=== PATIENT | female | born 1930 | race Caucasian/White ===

== ENCOUNTER 2017-06-24 21:22 | Inpatient (IN) ==
[2017-06-24] MEDS ORDERED: KETOROLAC 30 MG/ML INJECTION IVP ONE (21:46)
[2017-06-24] MEDS ORDERED: ALBUTEROL 2.5mg/3ml (0.083%) NEB AEROSOL ONE (21:46)
--- NOTE | 2017-06-24 21:50 | Emergency Department Report ---
General Adult HPI - General Stated complaint: fall,fever,weakness Time Seen by Provider: 06/24/17 21:24 Source: patient, family Mode of arrival: ambulatory Limitations: no limitations - History of Present Illness HPI narrative: Patient has had 2-3 days of fevers, mild cough, generalized achiness and fatigue. Patient is so she had the flu, and as she is "a telephone Cecy" she did not want to come to the hospital until today when she became so weak that her knees buckled and she fell. Patient has a mild abrasion to the right posterior scapula, but complains of mild left rib pain. Patient's primary complaint at this time is general weakness. - Related Data Home Medications Medication Instructions Recorded Confirmed Aspirin [Aspir 81] 81 mg PO DAILY #0 02/24/11 06/24/17 Triamterene/Hydrochlorothiazid 1 tab PO DAILY #0 02/24/11 06/24/17 [Maxzide 75 mg-50 mg Tablet] Acetaminophen 325 mg PO Q4H PRN 02/13/17 06/24/17 Lovastatin [Mevacor] 20 mg PO DAILY 02/13/17 06/24/17 Metoprolol Succinate 50 mg PO BID 02/13/17 06/24/17 Multivitamin [Multivitamins] 1 cap PO DAILY 02/13/17 06/24/17 Allergies Allergy/AdvReac Type Severity Reaction Status Date / Time No Known Allergies Allergy Verified 06/24/17 22:36 Review of Systems All systems: reviewed and negative except as stated PFSH Patient Stated Medical History Migraine Yes: hx Cataracts Yes Other HEENT Yes: Wears glasses, L eye hemorrhage Hypertension Yes Hiatal Hernia Yes Osteoarthritis Yes Surgical History: Hysterectomy - Social History Smoking status: Never smoker Physical Exam - Limitations Limitations: no limitations - General General appearance: alert - Normal Exams: Head:: Normocephalic without trauma Eyes:: Pupils are PERRLA w/ EOMI, No scleral icterus, irritation, or foreign bodies noted ENMT:: No facial trauma, nasal exudates, pharyngeal erythema, or exudates are noted Neck:: Full range of motion, without adenopathy, JVD, bruits or thyromegaly Cardiovascular:: Regular rate and rhythm, without murmur or gallop, Pulses 2+ all extremities, capillary refill, <2 seconds all extremities Abdomen:: Bowel sounds positive, soft, non-tender, non-distended, no hepatosplenomegaly, masses or bruits noted Lymphatic:: No lymphadenopathy, or lymphedema noted Musculoskeletal:: No tenderness, or deformity noted, good range of motion, all extremities Neurological:: Patient is alert, and oriented, cranial nerves, motor/sensory/ cerebellar, exams w/o gross deficits, to observation Psychiatric:: Patient exhibits, appropriate attention, emotion and affect - Chest Chest inspection: Present: normal inspection, symmetric chest wall rise. Absent : tenderness - Respiratory Respiratory exam: Present: wheezes. Absent: normal lung sounds bilaterally ( course breath sounds bilaterally with mild wheezes on the left and rhonchi greatest on the right), respiratory distress, accessory muscle use, prolonged expiratory phase - Back Exam Back exam: Present: other (patient has no significant tenderness, deformity, or contusions on the left or right side after the fall.) - Skin Skin exam: Present: other (patient has an oblique linear abrasion to the right scapula without tenderness or deformity.) Course Vital Signs Temperature 100 F 06/24/17 21:24 Pulse Rate 84 06/24/17 21:24 Respiratory Rate 16 06/24/17 21:24 Blood Pressure 172/79 H 06/24/17 21:24 Pulse Oximetry 89 L 06/24/17 21:24 Temperature 100 F 06/24/17 21:24 Pulse Rate 103 H 06/24/17 23:10 Respiratory Rate 23 06/24/17 23:10 Blood Pressure 151/72 H 06/24/17 22:07 Pulse Oximetry 93 06/24/17 23:12 Medical Decision Making - [facility] Narrative Medical decision making narrative: Initial O2 saturations were mildly low at 88% on room air, patient was placed on 2 L supplemental O2 Patient given 1 L normal saline IV fluid bolus, Toradol 20 mg IV, and one nebulized albuterol treatment CBC - N CMP - N respiratory panel - positive for influenza A CXR - COPD/chronic lung disease changes with persistent right perihilar thickening. No focal consolidations are seen She feeling much better after IV fluids and albuterol. O2 saturations remain somewhat borderline at 89-91% while resting supine. Patient is still feeling rather unsteady on her feet, does not feel that she would be able to maintain her ADLs at home. Patient is discussed with Dr. Duggan, we will admit for hypoxemia, weakness associated with influenza A - Lab Data Result diagrams: 06/24/17 22:20 06/24/17 22:20 Lab Results 06/24/17 06/24/17 06/24/17 Range/Units 22:20 22:20 22:20 WBC 5.3 (4.5-11.0) T/MM3 RBC 3.90 L (4.00-5.20) M/MM3 Hgb 13.2 (12-16) GM/DL Hct 39.0 (36-46) % MCV 100.0 (80-100) UM3 MCH 33.8 (26-34) UUG MCHC 33.8 (31-37) GM/DL RDW Std Deviation 47.5 (36.9-50.2) FL Plt Count 109 L (130-400) T/MM3 MPV 11.0 (9.4-12.4) UM3 Immature Gran % (Auto) 0.2 (0.0-0.5) % Neut % (Auto) 82.5 H (33-66) % Lymph % (Auto) 8.0 L (23-45) % [place] % (Auto) 9.1 H (0-9.0) % Eos % (Auto) 0.0 (0-4) % Baso % (Auto) 0.2 (0-2) % Neut # (Auto) 4.4 (1.8-7.7) T/MM3 Lymph # (Auto) 0.4 L (1-4.8) T/MM3 [place] # (Auto) 0.5 (0-0.8) T/MM3 Eos # (Auto) 0.0 (0-0.5) T/MM3 Baso # (Auto) 0.0 (0-0.2) T/MM3 Abs Immat Gran (auto) 0.01 (0.00-0.03) T/MM3 Turbidity < 20 (0-20) Sodium 133 L (134-144) MEQ/L Potassium 4.1 (3.6-5) MEQ/L Chloride 94 L (98-107) MEQ/L Carbon Dioxide 31 H (22-30) MEQ/L Anion Gap 8 (5-15) MEQ/L BUN 36.0 H (7-17) MG/DL Creatinine 1.0 (0.7-1.2) MG/DL GFR Calculation 52 BUN/Creatinine Ratio 36 H (6-26) RATIO Glucose 118 H (65-110) MG/DL Calculated Osmolality 265 (261-280) MOSM/KG Calcium 8.7 (8.4-10.2) MG/DL Total Bilirubin 0.40 (0.20-1.30) MG/DL Conjugated Bilirubin 0.00 (0.00-0.30) MG/DL Unconjugated Bilirubin 0.20 (0.00-1.1) MG/DL Icterus Index < 2 (0-7) AST 66 H (14-36) U/L ALT 35 (9-52) U/L Alkaline Phosphatase 58 (38-126) U/L Total Protein 6.9 (6.3-8.2) G/DL Albumin 3.9 (3.5-5.0) G/DL Globulin 3.0 (2.4-3.6) G/DL Albumin/Globulin Ratio 1.3 (1.1-2.2) RATIO Plasma Lactate 1.3 (0.6-2.2) MMOL/L Specimen Hemolysis < 15 (0-25) Adenovirus (PCR) Negative (Negative) B.parapertussis DNA PCR Negative (Negative) C. pneumoniae DNA (PCR) Negative (Negative) Coronavirus OC43 (PCR) Negative (Negative) Coronavirus HKU1 (PCR) Negative (Negative) Coronavirus 229E (PCR) Negative (Negative) Coronavirus NL63 (PCR) Negative (Negative) Human Metapneumovir PCR Negative (Negative) Influenza A (H3) PCR Detected A* (Negative) Influenza Type B (PCR) Negative (Negative) M. pneumoniae (PCR) Negative (Negative) Parainfluenza 1 (PCR) Negative (Negative) Parainfluenza 2 (PCR) Negative (Negative) Parainfluenza 3 (PCR) Negative (Negative) Parainfluenza 4 (PCR) Negative (Negative) RSV (PCR) Negative (Negative) Entero/Rhino (PCR) Negative (Negative) Disposition Clinical Impression: Influenza A COPD (chronic obstructive pulmonary disease) Qualifiers: COPD type: unspecified COPD Qualified Code(s): J44.9 - Chronic obstructive pulmonary disease, unspecified Disposition: 02 To [facility] [place] Condition: Improved Instructions: Influenza (ED), COPD (Chronic Obstructive Pulmonary Disease) (ED) Prescriptions: Continue Lovastatin [Mevacor] 20 mg PO DAILY Acetaminophen 325 mg PO Q4H PRN PRN Reason: Pain Triamterene/Hydrochlorothiazid [Maxzide 75 mg-50 mg Tablet] 1 tab PO DAILY #0 Aspirin [Aspir 81] 81 mg PO DAILY #0 Multivitamin [Multivitamins] 1 cap PO DAILY Metoprolol Succinate 50 mg PO BID Referrals: Riccardo Bethea MD [Family Provider] - - Seen By: physician
[2017-06-24] MEDS: SALINE FLUSH 10ml SYRINGE IVF PRN (22:27)
[2017-06-24] MEDS ORDERED: INHALER ASSIST DEVICE (Optichamber) MC ONE (23:46)
[2017-06-25] MEDS ORDERED: IBUPROFEN 600 MG TABLET PO PRN (00:43)
[2017-06-25] MEDS ORDERED: ACETAMINOPHEN 650 MG SUPPOSITORY PR PRN (00:43)
[2017-06-25] MEDS ORDERED: ONDANSETRON 4 MG/2 ML INJECTION IVP PRN (00:43)
[2017-06-25] MEDS ORDERED: OSELTAMIVIR 30mg/5ml ORAL LIQUID PO ONE (00:43)
[2017-06-25] MEDS ORDERED: ALBUTEROL 2.5mg/3ml (0.083%) NEB AEROSOL PRN (01:02)
--- NOTE | 2017-06-25 01:08 | History & Physical Report ---
History of Present Illness Date: 06/25/17 Chief complaint: weakness and cough HPI: Patient seen with nursing assistance via telemedicine on 06/25/2017 Ms. Collins is a pleasant 87yo woman with h/o HTN, dyslipidemia, cataracts, and hard of hearing with now 2-3 days of dry cough and weakness. In the last day short of breath with nebs helping. Aches but no real pain or nausea. ?sick contacts. ABRAHAM noted with no h/o tobacco abuse. No recent medication changes. No syncope with fall. Past Medical History Patient Stated Medical History Migraine Yes: hx Cataracts Yes Other HEENT Yes: Wears glasses, L eye hemorrhage Hypertension Yes Hiatal Hernia Yes Osteoarthritis Yes Surgical History: Hysterectomy Family History Updates: mother of CVA at 85, father of CAD at 66 - Social History Smoking status: Never smoker Substance use type: does not use Alcohol intake frequency: does not drink Housing: house Household members: none Medications Home Medications Medication Instructions Recorded Confirmed Type RX: Aspirin [Aspir 81] 81 mg PO DAILY #0 02/24/11 06/24/17 History RX: Triamterene/Hydrochlorothiazid 1 tab PO DAILY #0 02/24/11 06/24/17 History [Maxzide 75 mg-50 mg Tablet] RX: Acetaminophen 325 mg PO Q4H PRN 02/13/17 06/24/17 History RX: Lovastatin [Mevacor] 20 mg PO DAILY 02/13/17 06/24/17 History RX: Metoprolol Succinate 50 mg PO BID 02/13/17 06/24/17 History RX: Multivitamin [Multivitamins] 1 cap PO DAILY 02/13/17 06/24/17 History Allergies Allergy/AdvReac Type Severity Reaction Status Date / Time No Known Allergies Allergy Verified 06/24/17 22:36 Exam Vital Signs: Temperature 98.2 F 06/25/17 00:54 Pulse Rate 140 H 06/25/17 00:54 Respiratory Rate 16 06/25/17 00:54 Blood Pressure 114/82 06/25/17 00:54 Pulse Oximetry 92 06/25/17 00:54 Telemetry Rhythm: Sinus Tachycardia Height/Weight/BMI: Height 1.63 m Weight 48 kg Body Mass Index 18.1 - Constitutional Present: no acute distress, thin - Routine HEENT Exam Head: Present: normocephalic, atraumatic Eye: Present: EOMI - Routine Neck Exam Present: full ROM - Routine Respiratory Exam Absent: accessory muscle use Comments: slight wheezing and prolonged expiration. no rales. effort symmetric - Routine Cardiovascular Exam Present: RRR, S1, S2, no murmur Comments: mild tachycardic with afib briefly on monitor - Routine Abdominal Exam Present: soft, normoactive bowel sounds, non distended - Routine Extremities Exam Absent: cyanosis, clubbing, edema - Routine Skin Exam Present: intact - Routine Neurological Exam Present: alert, oriented X3, CN II-XII intact - Routine Psychiatric Exam Present: normal affect Results - Labs CBC & Chem 7: 06/24/17 22:20 06/24/17 22:20 Assessment and Plan (1) Influenza A Current visit: Yes Status: Acute (2) Hypoxia Current visit: Yes Status: Acute (3) HTN (hypertension) Current visit: Yes Status: Acute (4) Dyslipidemia Current visit: Yes Status: Acute (5) Atrial fibrillation Current visit: Yes Status: Acute Assessment and Plan: 1. Influenza A leading to hypoxia--full admit, tamiflu, nebs scheduled and prn , O2 2. Paroxysmal afib--albuterol certainly will contribute. LMWH once and continue home metoprolol 3. Essential HTN--hold diuretic, continue other. 4. Dyslipidemia on statin. 5. Stress hyperglycemia DVT Prophylaxis: SCD's Resuscitation Status: Do Not Resuscitate - Physician Narrative Physician: Rhoda Cortez MD Narrative: Date: 06/25/17 Time: 1300 Dr. Gunn's note reviewed. Mrs. Collins interviewed and examined. CC: Cough and weakness with fall HPI: Mrs. Collins is an 87-year-old female who presented to the emergency room after falling at home. She is not aware of any injuries and reports that she simply felt weak and couldn't keep her balance. She adamantly denies syncope and is not aware of any injuries. This occurred late yesterday after she had a cough for 2 or 3 days associated with poor oral intake. Cough has been nonproductive and she denies wheezing or pleuritic pain. Patient reports some dyspnea and exertional dyspnea. She has felt feverish but denied rigors or chills. She reports her thermometer doesn't work at home so she is unsure how high her temperature is been. She's had no swelling in her legs and no chest pain. Initial temperature in the emergency room was 100 and she has had mild tachypnea with some tachycardia since admission. Oxygen saturation on arrival was 89% on room air and later repeated at 87%. Respiratory viral panel was positive for influenza A and she was hospitalized for management of hypoxia and weakness in the setting of a fall. PH/SH/FH: agree with that recorded above as recorded by Dr. 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 She denies history of hysterectomy but did have several breast biopsies for benign disease in the past and has had bilateral cataract extractions. The patient lives independently, reports that her alternate decision-maker is her daughter Irasema Sheikh, and that she has a DO NOT RESUSCITATE order. ROS: 10 point review positive only for occasional nosebleeds, chronic constipation, and arthritic pain involving her hands, wrists, and knees. Remainder of ROS negative or as per history of present illness. EXAM: General-NAD, alert, fluent speech; 98.2, 91, 94% on 1 L supplemental oxygen HEENT-PERRL, EOMI without nystagmus, R-conjunctiva clear, L-medial subconjunctival hemorrhage, sclera anicteric, conjugate gaze, facial structures symmetric, oropharynx clear, neck supple and without adenopathy Lungs-respirations nonlabored, good airflow, breath sounds clear Cardiac-irregular cardiac rhythm with low-grade tachycardia, S1 and S2 Abd-soft, nontender, bowel sounds present although somewhat diminished Ext-without edema Skin-without wounds/rash Neuro-cranial nerves 1-12 intact, motor tone/power grossly intact, no tremor, sensation intact to light touch/cold 4 extremities Psych-alert, cooperative, calm DATA: White count 5.3, hemoglobin 13.2, platelet count 109,000 (not present previously per review of outpatient records); sodium 133, BUN 36, creatinine 1.0 , AST 66 with remainder of liver enzymes normal. Lactic acid 1.3-1.3 Respiratory viral panel positive for influenza A Chest x-ray by my review with flattened diaphragms and hyperexpanded lung cunningham , bilateral interstitial markings are increased, cardiomegaly-new since 2011 per radiology report. Telemetry reviewed-atrial fibrillation with variable rates A/P: Influenza A with hypoxia Weakness with fall Atrial fibrillation, variable rate Thrombocytopenia, borderline Hypertension Dyslipidemia Tamiflu was initiated overnight for treatment of influenza A. Patient's diuretic remains on hold; metoprolol was resumed to assist with rate control. We 'll clarify duration of atrial fibrillation with the patient with additional history. Continue telemetry. EKG to be obtained. Patient does not describe history of arrhythmias or other cardiac disease earlier severe arrhythmia may be new with stress of acute illness. Anticipate echocardiogram. Continue IV fluids, check orthostatics, and obtain PT/OT consults due to weakness and fall that preceded hospitalization. Follow platelet count and sodium, both borderline on admission. Hospital Course Summary Disclaimer: The visit summary below is not to be considered part of the above Progress Note.
[2017-06-25] MEDS: SALINE FLUSH 10ml SYRINGE IVF PRN (01:09)
[2017-06-25] MEDS: NS 1,000 ML IV SCH ×3 (01:10→21:32)
[2017-06-25] MEDS: ENOXAPARIN 40 MG/0.4 ML INJECTION SQ SCH ×2 (01:55→08:59)
--- NOTE | 2017-06-25 07:37 | XRay Report ---
Indication: cough, fever, hypoxemia XR chest 2V: Comparison: 05/29/2012 Technique: PA and lateral chest Findings: Patient shows slight increase in the heart size since the 2012 study. Increased interstitial markings have increased just slightly and may be more reflective of increasing interstitial lung disease some. Patient showed quite a bit of chronic change on the old exam. No pleural effusions or significant central vascular congestion identified. Impression: Significant chronic interstitial lung disease with a slight increase in the heart size without pleural effusions or significant central vascular congestion. .
[2017-06-25] MEDS: ALBUTEROL/IPRATROPIUM 2.5mg-0.5mg/3ml NEB AEROSOL SCH ×4 (07:50→20:37)
[2017-06-25] MEDS: ASPIRIN *EC* 81 MG TABLET PO SCH (08:59)
[2017-06-25 09:31] VITALS: BMI 18.0
[2017-06-25] MEDS: LOVASTATIN 20 MG TABLET PO SCH (21:20)
[2017-06-25] MEDS: SENNA + DOCUSATE TABLET PO SCH (21:20)
[2017-06-26] MEDS ORDERED: MENTHOL COUGH DROPS (RICOLA) MM PRN (01:49)
[2017-06-26] MEDS: ALBUTEROL/IPRATROPIUM 2.5mg-0.5mg/3ml NEB AEROSOL SCH ×4 (08:20→19:29)
[2017-06-26] MEDS: NS 1,000 ML IV SCH (08:21)
[2017-06-26] MEDS ORDERED: ALBUTEROL/IPRATROPIUM 2.5mg-0.5mg/3ml NEB AEROSOL PRN (08:24)
[2017-06-26] MEDS: ASPIRIN *EC* 81 MG TABLET PO SCH (09:49)
[2017-06-26] MEDS: ENOXAPARIN 40 MG/0.4 ML INJECTION SQ SCH (09:49)
[2017-06-26] MEDS: MENTHOL COUGH DROPS (RICOLA) MM PRN (09:49)
[2017-06-26] MEDS: NS with KCL 20 mEq 1,000 ML IV SCH ×2 (09:51→21:01)
[2017-06-26] MEDS: GUAIFENESIN LA 600 MG TABLET PO SCH ×2 (10:01→21:02)
--- NOTE | 2017-06-26 19:55 | Progress Note ---
- Date 06/26/17 Subjective: Mrs. Collins was resting comfortably when seen. She was not on oxygen and denied dyspnea but reported she continues to cough without sputum production. She denied chest pain but indicated she occasionally has palpitations. She's had no lightheadedness today and denied nausea or vomiting. She again confirmed that she's had an irregular heart rhythm for as long as she can remember but does not recall anticoagulation ever being discussed with her. She is unsure when she lost had an echocardiogram. She is familiar with warfarin because her took it. Objective Vital signs: Temperature 97.6 F 06/26/17 15:00 Pulse Rate 117 H 06/26/17 16:00 Respiratory Rate 18 06/26/17 19:29 Blood Pressure 114/71 06/26/17 15:00 Pulse Oximetry 95 RA 06/26/17 15:40 NAD, alert Conjunctiva clear, oropharynx clear Respirations nonlabored, good airflow, breath sounds clear, no cough induced by inspiration Irregular cardiac rhythm, S1-S2, low-grade tachycardia Abdomen soft, nontender, all sounds present although diminished Extremities without edema Skin without rash/wounds MAEW Calm, cooperative Rhythm: Atrial Fibrillation with Normal Ventricular Rate, Atrial Fibrillation with RVR Height/Weight/BMI: Height 1.63 m Weight 50.7 kg Body Mass Index 18.0 Results - Labs CBC & Chem 7: 06/26/17 04:21 06/26/17 04:21 Labs: Magnesium 1.6, phosphorus 2.8 Lactic acid 2.2 this morning-2.5 early afternoon-3.5 late this afternoon Microbiology Results: Microbiology 06/26/17 08:33 Peripheral/Iv Start Blood Culture - Preliminary Culture Initiated - Results Pending 06/26/17 08:37 Peripheral/Iv Start Blood Culture - Preliminary Culture Initiated - Results Pending Assessment and Plan (1) Influenza A Current visit: Yes Status: Acute (2) Hypoxia Current visit: Yes Status: Acute (3) Atrial fibrillation Current visit: Yes Status: Acute Assessment and Plan: Impression: Influenza A with hypoxia Weakness with fall Atrial fibrillation, variable rate Thrombocytopenia, borderline Hypertension Dyslipidemia Hypokalemia-06/26/17 Lactic acidosis Plan: Hypoxia improved, day 2 Tamiflu. Patient hoping to discharge to nursing home for strengthening. Atrial fibrillation discussed with the patient-she is interested in anticoagulation and does not describe any contraindication to doing so, Echocardiogram to be obtained to exclude valvular heart disease. Options reviewed with the patient in addition to bleeding risk. Will clarify cost of and NOACs prior to final decision. Continue low-dose Lovenox at present. Metoprolol increased to 150 mg daily for improved rate control although anticipate improved rate control with decreased beta agonist use. Review of past records indicates patient was in atrial fibrillation when hospitalized for surgery in 2014. Platelet count 99K, continue to monitor-likely viral manifestation that may preclude anticoagulation. Potassium supplemented IV/by mouth earlier today. Lactic acidosis new today, clearly has viral syndrome. Continue fluids. Blood pressure stable. Blood cultures drawn. - Physician Narrative Narrative: Date: 06/26/17 Time: 1950 Sepsis Assessment - Evaluation SIRS Criteria: pulse > 90 beats/minute (atrial fibrillation), RR > 20 (influenza ) Severe Sepsis: lactate > 2.0 mg/dL, platelet count < 100,000 Hospital Course Summary Disclaimer: The visit summary below is not to be considered part of the above Progress Note. Hospital Course: 06/25/17 Admitted with weakness and a fall; diagnosed with influenza A during assessment in the emergency room. Incidentally noted to be in atrial fibrillation-duration unknown. Tamiflu was initiated overnight for treatment of influenza A. Patient' s diuretic remains on hold; metoprolol was resumed to assist with rate control. Continue telemetry. EKG to be obtained. Patient did not describe history of arrhythmias or other cardiac disease when past medical history obtained; may be result of acute illness. Continue IV fluids, check orthostatics, and obtain PT/ OT consults due to weakness and fall that preceded hospitalization. Follow platelet count and sodium, both borderline on admission. 06/26/17 Hypoxia improved, day 2 Tamiflu. Patient hoping to discharge to nursing home for strengthening. Atrial fibrillation discussed with the patient-she is interested in anticoagulation and does not describe any contraindication to doing so, Echocardiogram to be obtained to exclude valvular heart disease. Options reviewed with the patient in addition to bleeding risk. Will clarify cost of and NOACs prior to final decision. Continue low-dose Lovenox at present. Metoprolol increased to 150 mg daily for improved rate control although anticipate improved rate control with decreased beta agonist use. Review of past records indicates patient was in atrial fibrillation when hospitalized for surgery in 2014. Lactic acidosis new today, clearly has viral syndrome. Continue fluids. Blood pressure stable. Blood cultures drawn.
[2017-06-26] MEDS: LOVASTATIN 20 MG TABLET PO SCH (21:02)
[2017-06-26] MEDS: SENNA + DOCUSATE TABLET PO SCH (21:03)
[2017-06-27] MEDS: Oxycodone/Acetaminophen 5/325 1 TAB PO PRN ×2 (03:58→21:39)
[2017-06-27] MEDS: NS with KCL 20 mEq 1,000 ML IV SCH (07:22)
[2017-06-27] MEDS: ALBUTEROL/IPRATROPIUM 2.5mg-0.5mg/3ml NEB AEROSOL SCH ×4 (07:45→20:37)
[2017-06-27] MEDS: GUAIFENESIN LA 600 MG TABLET PO SCH ×2 (08:53→21:40)
[2017-06-27] MEDS: ASPIRIN *EC* 81 MG TABLET PO SCH (08:54)
[2017-06-27] MEDS: ENOXAPARIN 40 MG/0.4 ML INJECTION SQ SCH (08:55)
[2017-06-27] MEDS: MENTHOL COUGH DROPS (RICOLA) MM PRN ×2 (11:42→15:18)
[2017-06-27] MEDS ORDERED: INFLUENZA VAC High Dose 2017-18 (Fluzone HD*) (>=65yo) 0.5ml IM ONE (12:20)
--- NOTE | 2017-06-27 13:53 | Progress Note ---
- Date 06/27/17 Subjective: Patient seen this morning lying in bed. She reports she is feeling better. She continues to feel weak. Feels her breathing is better but is still coughing quite a bit. Doesn't have much of an appetite. Complains of no pain. She states that [facility] to get [facility] before she goes back to her home. Objective Vital signs: Temperature 97.4 F 06/27/17 07:26 Pulse Rate 108 H 06/27/17 08:00 Respiratory Rate 20 06/27/17 11:40 Blood Pressure 112/66 06/27/17 07:26 Pulse Oximetry 94 06/27/17 11:40 Rhythm: Atrial Fibrillation with Normal Ventricular Rate, Atrial Fibrillation with RVR Height/Weight/BMI: Height 1.63 m Weight 52.5 kg Body Mass Index 18.0 - Constitutional Present: no acute distress, well developed, thin - Routine HEENT Exam Head: Present: normocephalic, atraumatic - Routine Respiratory Exam Present: crackles. Absent: wheezes - Routine Cardiovascular Exam Present: no murmur, irregular rhythm - Routine Abdominal Exam Present: soft, non distended, non tender - Routine Extremities Exam Present: no edema, normal capillary refill - Routine Skin Exam Present: dry, warm - Routine Neurological Exam Present: alert, oriented X3 - Routine Lymphatic Exam Lymphatic: Absent: adenopathy - Routine Psychiatric Exam Present: normal affect, cooperative Results - Labs CBC & Chem 7: 06/27/17 05:11 06/27/17 05:11 Microbiology Results: Microbiology 06/26/17 08:33 Peripheral/Iv Start Blood Culture - Preliminary No Growth After 1 Day 06/26/17 08:37 Peripheral/Iv Start Blood Culture - Preliminary No Growth After 1 Day Assessment and Plan (1) Influenza A Current visit: Yes Status: Acute (2) Hypoxia Current visit: Yes Status: Acute (3) Atrial fibrillation Current visit: Yes Status: Acute Assessment and Plan: Impression: Influenza A with hypoxia Weakness with fall Atrial fibrillation, variable rate Thrombocytopenia, borderline Hypertension Dyslipidemia Hypokalemia-06/26/17 Lactic acidosis Plan: On 2 L O2. Day #3 Tamiflu. Patient improving. Echocardiogram results are pending. Patient willing to start chronic anticoagulation for A. fib. Currently on low-dose Lovenox. Platelet count 101K, continue to monitor-likely viral manifestation that may preclude anticoagulation. Metoprolol increased to 150 mg daily for improved rate control. Rates 100-123 over the past 24 hours. Patient hoping to discharge to correction at [facility] for strengthening. DVT Prophylaxis: Xarelto Resuscitation Status: Do Not Resuscitate - Physician Narrative Physician: Josselin Glover MD Narrative: Date: 06/27/17 Time: 1900 Mrs. Collins reports that she's been wearing oxygen off and on but probably doesn' t need it. She denies dyspnea and cough is "looser". She denies pain or palpitations. Respirations are nonlabored and breath sounds are clear, no wheezing present Irregular cardiac rhythm, low-grade tachycardia Preliminary echocardiogram report with normal ejection fraction, minor MR/TR. Aortic valve was not seen but Doppler does not suggest significant aortic stenosis. Initiate Xarelto for stroke prophylaxis Blood pressure stable on 150 mg metoprolol daily. Hospital Course Summary Disclaimer: The visit summary below is not to be considered part of the above Progress Note. Hospital Course: 06/25/17 Admitted with weakness and a fall; diagnosed with influenza A during assessment in the emergency room. Incidentally noted to be in atrial fibrillation-duration unknown. Tamiflu was initiated overnight for treatment of influenza A. Patient' s diuretic remains on hold; metoprolol was resumed to assist with rate control. Continue telemetry. EKG to be obtained. Patient did not describe history of arrhythmias or other cardiac disease when past medical history obtained; may be result of acute illness. Continue IV fluids, check orthostatics, and obtain PT/ OT consults due to weakness and fall that preceded hospitalization. Follow platelet count and sodium, both borderline on admission. 06/26/17 Hypoxia improved, day 2 Tamiflu. Patient hoping to discharge to correction for strengthening. Atrial fibrillation discussed with the patient-she is interested in anticoagulation and does not describe any contraindication to doing so, Echocardiogram to be obtained to exclude valvular heart disease. Options reviewed with the patient in addition to bleeding risk. Will clarify cost of and NOACs prior to final decision. Continue low-dose Lovenox at present. Metoprolol increased to 150 mg daily for improved rate control although anticipate improved rate control with decreased beta agonist use. Review of past records indicates patient was in atrial fibrillation when hospitalized for surgery in 2014. Lactic acidosis new today, clearly has viral syndrome. Continue fluids. Blood pressure stable. Blood cultures drawn. 06/27/17 On 2 L O2. Day #3 Tamiflu. Patient improving. Echocardiogram results are pending. Patient willing to start chronic anticoagulation for A. fib. Currently on low-dose Lovenox. Platelet count 101K, continue to monitor-likely viral manifestation that may preclude anticoagulation. Metoprolol increased to 150 mg daily for improved rate control. Rates 100-123 over the past 24 hours. Patient hoping to discharge to correction at [facility] for strengthening.
[2017-06-27] MEDS ORDERED: RIVAROXABAN 20 MG TABLET PO SCH (17:30)
[2017-06-27] MEDS: LOVASTATIN 20 MG TABLET PO SCH (21:40)
[2017-06-27] MEDS: SENNA + DOCUSATE TABLET PO SCH (21:44)
[2017-06-28] MEDS: ALBUTEROL/IPRATROPIUM 2.5mg-0.5mg/3ml NEB AEROSOL SCH ×4 (07:06→19:33)
--- NOTE | 2017-06-28 07:47 | Echocardiogram ---
DATE OF PROCEDURE June 26, [address] Rhoda Cortez This is a two-dimensional echo with spectral Doppler, color-flow and M-mode. It was obtained in a patient with atrial fibrillation. This is a technically very difficult study. Left atrial dimension is normal. Left ventricular end-diastolic dimension is normal. Left ventricular wall thickness is normal. LV systolic function is normal with ejection fraction of 60%. Right atrium is normal. Right ventricle is normal. Aortic root dimension is normal. Mitral valve appears to be normal with trace of mitral regurgitation. Aortic valve was not visualized well. However, Doppler studies indicate no stenosis or insufficiency. Tricuspid valve shows mild tricuspid regurgitation with mild pulmonary hypertension with estimated pulmonary artery systolic pressure of 34. Pulmonary valve was not visualized. There is no pericardial effusion. IMPRESSION 1. Technically very difficult study. 2. Grossly normal LV systolic function with ejection fraction of about 60%. However, all daly were not visualized. 3. Trace of mitral regurgitation. 4. Mild tricuspid regurgitation with mild pulmonary hypertension with estimated pulmonary artery systolic pressure of 34. MTDD
[2017-06-28] MEDS: ASPIRIN *EC* 81 MG TABLET PO SCH (08:45)
[2017-06-28] MEDS: MENTHOL COUGH DROPS (RICOLA) MM PRN (08:45)
[2017-06-28] MEDS: GUAIFENESIN LA 600 MG TABLET PO SCH ×2 (08:45→21:14)
--- NOTE | 2017-06-28 10:41 | Progress Note ---
- Date 06/28/17 Subjective: Garima was seen after breakfast - she was dozing off in her chair but woke up easily. She denied any c/o except for feeling a little bloated. She denies feeling SOA or having chest pain or palpitations. She coughs occasionally but its nonproductive. Her nurse checks on her when HR >130 and she is consistently asymptomatic. She denies nausea/vomiting. She notes a little leg swelling. I asked her if she sees a leather coverer for her a-fib and she told me she didn't know she had a-fib. Objective Vital signs: Temperature 98.5 F 06/28/17 08:00 Pulse Rate 122 H 06/28/17 08:00 Respiratory Rate 18 06/28/17 10:10 Blood Pressure 176/114 H 06/28/17 08:00 Pulse Oximetry 96 06/28/17 10:10 Rhythm: Atrial Fibrillation with RVR Height/Weight/BMI: Height 1.63 m Weight 52.5 kg Body Mass Index 18.0 - Constitutional Present: no acute distress, well nourished, well developed, thin - Routine HEENT Exam Eye: Present: PERRL. Absent: conjunctival icterus, scleral injection ENT: Present: mucous membranes moist - Routine Respiratory Exam Present: decreased breath sounds, crackles - Routine Cardiovascular Exam Present: irregularly irregular - Routine Abdominal Exam Present: normoactive bowel sounds, non tender, distended - Routine Extremities Exam Present: edema (trace BLE) - Routine Musculoskeletal Exam Musculoskeletal: Present: no joint swelling - Routine Skin Exam Present: intact, dry, warm - Routine Neurological Exam Present: alert, moving all extremities, normal speech - Routine Psychiatric Exam Present: normal affect, cooperative Results - Labs CBC & Chem 7: 06/28/17 04:15 06/27/17 05:11 Microbiology Results: Microbiology 06/26/17 08:33 Peripheral/Iv Start Blood Culture - Preliminary No Growth After 2 Days 06/26/17 08:37 Peripheral/Iv Start Blood Culture - Preliminary No Growth After 2 Days Assessment and Plan (1) Influenza A Current visit: Yes Status: Acute (2) Hypoxia Current visit: Yes Status: Acute (3) Atrial fibrillation Current visit: Yes Status: Acute Assessment and Plan: Impression: Influenza A with hypoxia Weakness with fall Atrial fibrillation, variable rate Thrombocytopenia Hypertension Dyslipidemia Hypokalemia-06/26/17 Lactic acidosis Plan: Sats dropped to 85% on room air and she was placed back on O2. Cont Tamiflu day #4. Echo read by Dr. Coello - EF 60%; mild TR, mild PH. HR still >130 at times; pt asymptomatic and BP tends to be on high side. D/W Dr. Abad - will start diltiazem 180 mg daily. Cont higher dose of metoprolol. Consider cardiology consultation. Platelet count is rebounding and up to 108 today. Mg borderline low - start MagOx 400 mg daily. [facility] Outpatient Xarelto cost about 400 dollars a month - will change to Coumadin. Pharm consult initiated. DVT Prophylaxis: Xarelto Resuscitation Status: Do Not Resuscitate - Time spent with patient Time with patient PN: 35 minutes Coordination of Care: >50% of visit spent providing counseling/coordination of care - Physician Narrative Physician: Ajith Abad MD Narrative: Date: 06/28/17 Time: 1710 Have independently interviewed and examined pt. Chart reviewed. Case discussed with CM and my P[employer] ROUGHER. Care plan developed with my supervision; agree with above. Doing okay. Notes problems sleeping-will get SOA and anxious. Does tend to have difficulty sleeping at home-if insomnia occurs will do Facebook, get a snack, or walk around--not able to do any of that here. Eating well. No chest pain/ palpitations. Had questions about afib and skilled care-discussed with her. Lungs: decreased bilaterally, no distress on RA. CV: irregularly irregular. AB : soft nt/nd MSE: awake alert appropriate Plan: Add diltiazem 180mg daily to help HR. Check on cost of Xarelto for patient -about $400 a month; will change to Coumadin. Could try lorazepam 0.5mg to help anxiey/airhunger and sleep. Discussed afib treatments with patient. Discussed about medications to help control heart rate and also medications to decrease risk for clot formation/stroke. Also discussed about Skilled care post discharge. Questions answered. Time spent with patient 35 minutes, with greater than 50% discussing her medical conditions and medications use for treatment. Hospital Course Summary Disclaimer: The visit summary below is not to be considered part of the above Progress Note. Hospital Course: 06/25/17 Admitted with weakness and a fall; diagnosed with influenza A during assessment in the emergency room. Incidentally noted to be in atrial fibrillation-duration unknown. Tamiflu was initiated overnight for treatment of influenza A. Patient' s diuretic remains on hold; metoprolol was resumed to assist with rate control. Continue telemetry. EKG to be obtained. Patient did not describe history of arrhythmias or other cardiac disease when past medical history obtained; may be result of acute illness. Continue IV fluids, check orthostatics, and obtain PT/ OT consults due to weakness and fall that preceded hospitalization. Follow platelet count and sodium, both borderline on admission. 06/26/17 Hypoxia improved, day 2 Tamiflu. Patient hoping to discharge to shelter for strengthening. Atrial fibrillation discussed with the patient-she is interested in anticoagulation and does not describe any contraindication to doing so, Echocardiogram to be obtained to exclude valvular heart disease. Options reviewed with the patient in addition to bleeding risk. Will clarify cost of and NOACs prior to final decision. Continue low-dose Lovenox at present. Metoprolol increased to 150 mg daily for improved rate control although anticipate improved rate control with decreased beta agonist use. Review of past records indicates patient was in atrial fibrillation when hospitalized for surgery in 2014. Lactic acidosis new today, clearly has viral syndrome. Continue fluids. Blood pressure stable. Blood cultures drawn. 06/27/17 On 2 L O2. Day #3 Tamiflu. Patient improving. Echocardiogram results are pending. Patient willing to start chronic anticoagulation for A. fib. Currently on low-dose Lovenox. Platelet count 101K, continue to monitor-likely viral manifestation that may preclude anticoagulation. Metoprolol increased to 150 mg daily for improved rate control. Rates 100-123 over the past 24 hours. Patient hoping to discharge to shelter at [facility] for strengthening. 06/28/17 Sats dropped to 85% on room air and she was placed back on O2. Cont Tamiflu day #4. Echo read by Dr. Coello - EF 60%; mild TR, mild PH. HR still >130 at times; pt asymptomatic and BP tends to be on high side. D/W Dr. Abad - will start diltiazem 180 mg daily. Cont higher dose of metoprolol. Consider cardiology consultation. Platelet count is rebounding and up to 108 today. Mg borderline low - start MagOx 400 mg daily. Outpatient Xarelto cost about 400 dollars a month - will change to Coumadin. Pharm consult initiated.
[2017-06-28] MEDS: Oxycodone/Acetaminophen 5/325 1 TAB PO PRN (10:50)
[2017-06-28] MEDS ORDERED: MAGNESIUM OXIDE 400 MG TABLET PO ONE (10:54)
[2017-06-28] MEDS ORDERED: WARFARIN - PHARMACY CONSULT MC ONE (13:17)
[2017-06-28] MEDS ORDERED: WARFARIN 4 MG TABLET PO ONE (14:05)
--- NOTE | 2017-06-28 14:15 | Pharmacy Consult ---
Pharmacy Consult-Warfarin - Consult Information 87 y.o. female with new onset a.fib. received 1 dose of Xarelto 06/27/17 and changed to Warfarin protocol today. goal INR range = 2.0 to 3.0. Will give Warfarin 4 mg po x1 dose today. Pharmacy will monitor and adjust as needed. Thank you, Kelly Garcia [facility]
[2017-06-28] MEDS ORDERED: LORazepam 0.5 MG TABLET PO PRN (17:06)
[2017-06-28] MEDS ORDERED: ACETAMINOPHEN 325 MG TABLET PO PRN (17:07)
[2017-06-28] MEDS: LOVASTATIN 20 MG TABLET PO SCH (21:14)
[2017-06-28] MEDS: SENNA + DOCUSATE TABLET PO SCH (21:15)
[2017-06-29 07:50] VITALS: BP 131/70; PULSE 71; TEMP 97
[2017-06-29] MEDS: ALBUTEROL/IPRATROPIUM 2.5mg-0.5mg/3ml NEB AEROSOL SCH ×2 (08:40→15:33)
[2017-06-29 08:51] VITALS: RESP 22; O2SAT 94
[2017-06-29] MEDS ORDERED: MAGNESIUM OXIDE 400 MG TABLET PO SCH (09:00)
[2017-06-29] MEDS: GUAIFENESIN LA 600 MG TABLET PO SCH (09:42)
[2017-06-29] MEDS: ASPIRIN *EC* 81 MG TABLET PO SCH (09:46)
--- NOTE | 2017-06-29 10:52 | Progress Note ---
- Date 06/29/17 Subjective: F/U: Influenza with hypoxia, Afib Doing well this morning. Breathing feels better-less SOA and congested. Not hurting as she breaths. Not SOA on RA. No chest pressure or pain. Appetite stable. No ab pain. Feels ready for discharge to skilled care at [facility]. Objective Vital signs: Temperature 97 F 06/29/17 07:00 Pulse Rate 71 06/29/17 07:00 Respiratory Rate 22 06/29/17 08:40 Blood Pressure 131/70 06/29/17 07:00 Pulse Oximetry 94 06/29/17 08:40 Rhythm: Atrial Fibrillation with RVR Height/Weight/BMI: Height 1.63 m Weight 53.1 kg Body Mass Index 18.0 - Constitutional Present: no acute distress, well nourished, well developed, average body habitus , cooperative - Routine HEENT Exam Head: Present: normocephalic, atraumatic Eye: Present: EOMI, PERRL ENT: Present: mucous membranes moist - Routine Respiratory Exam Present: decreased breath sounds. Absent: prolonged expiratory phase, rales, respiratory distress, rhonchi, stridor, wheezes, crackles - Routine Cardiovascular Exam Present: irregular rhythm, irregularly irregular - Routine Abdominal Exam Present: soft, normoactive bowel sounds, non distended, non tender. Absent: guarding - Routine Extremities Exam Present: edema (+1 BLE ), pulses intact. Absent: cyanosis, clubbing - Routine Musculoskeletal Exam Musculoskeletal: Present: no clubbing or cyanosis - Routine Skin Exam Present: dry, warm - Routine Neurological Exam Present: alert, oriented X3, CN II-XII intact, moving all extremities, vision grossly intact, hearing grossly intact, normal speech. Absent: motor deficit, altered mental status - Routine Psychiatric Exam Present: normal affect, normal thought process, cooperative, good insight, good judgment Results - Labs CBC & Chem 7: 06/29/17 04:10 06/29/17 04:10 Microbiology Results: Microbiology 06/26/17 08:37 Peripheral/Iv Start Blood Culture - Preliminary No Growth After 3 Days 06/26/17 08:33 Peripheral/Iv Start Blood Culture - Preliminary No Growth After 3 Days Assessment and Plan (1) Influenza A Current visit: Yes Status: Acute (2) Hypoxia Current visit: Yes Status: Acute (3) Atrial fibrillation Current visit: Yes Status: Acute Assessment and Plan: Impression: Influenza A with hypoxia Weakness with fall Atrial fibrillation, variable rate Thrombocytopenia Hypertension Dyslipidemia Hypokalemia-06/26/17 Lactic acidosis Plan: Heart rate improved with addition of diltiazem 180mg. Blood pressure stable. Coumadin started - INR subtherapeutic as will take several day for INR to increase. Needs 2 more doses of Tamiflu to complete course. Medically stable for discharge to [facility] for skilled care. Will have INR done on Sunday 07/02 due to Coumadin use. Will recheck INR and CMP/Mg on 07/05 due to medication use. INR Monitoring as per Dr Bethea thereafter. F/U with Dr Bethea in 1 week for reevaluation. See orders for details. Case discussed with CM. Time spent with patient care and discharge greater than 30 minutes. DVT Prophylaxis: Coumadin Resuscitation Status: Do Not Resuscitate - Physician Narrative Physician: Ajith Abad MD Narrative: Date: 06/29/17 Time: 1047 Hospital Course Summary Disclaimer: The visit summary below is not to be considered part of the above Progress Note. Hospital Course: 06/25/17 Admitted with weakness and a fall; diagnosed with influenza A during assessment in the emergency room. Incidentally noted to be in atrial fibrillation-duration unknown. Tamiflu was initiated overnight for treatment of influenza A. Patient' s diuretic remains on hold; metoprolol was resumed to assist with rate control. Continue telemetry. EKG to be obtained. Patient did not describe history of arrhythmias or other cardiac disease when past medical history obtained; may be result of acute illness. Continue IV fluids, check orthostatics, and obtain PT/ OT consults due to weakness and fall that preceded hospitalization. Follow platelet count and sodium, both borderline on admission. 06/26/17 Hypoxia improved, day 2 Tamiflu. Patient hoping to discharge to alf for strengthening. Atrial fibrillation discussed with the patient-she is interested in anticoagulation and does not describe any contraindication to doing so, Echocardiogram to be obtained to exclude valvular heart disease. Options reviewed with the patient in addition to bleeding risk. Will clarify cost of and NOACs prior to final decision. Continue low-dose Lovenox at present. Metoprolol increased to 150 mg daily for improved rate control although anticipate improved rate control with decreased beta agonist use. Review of past records indicates patient was in atrial fibrillation when hospitalized for surgery in 2014. Lactic acidosis new today, clearly has viral syndrome. Continue fluids. Blood pressure stable. Blood cultures drawn. 06/27/17 On 2 L O2. Day #3 Tamiflu. Patient improving. Echocardiogram results are pending. Patient willing to start chronic anticoagulation for A. fib. Currently on low-dose Lovenox. Platelet count 101K, continue to monitor-likely viral manifestation that may preclude anticoagulation. Metoprolol increased to 150 mg daily for improved rate control. Rates 100-123 over the past 24 hours. Patient hoping to discharge to alf at [facility] for strengthening. 06/28/17 Sats dropped to 85% on room air and she was placed back on O2. Cont Tamiflu day #4. Echo read by Dr. Coello - EF 60%; mild TR, mild PH. HR still >130 at times; pt asymptomatic and BP tends to be on high side. D/W Dr. Abad - will start diltiazem 180 mg daily. Cont higher dose of metoprolol. Consider cardiology consultation. Platelet count is rebounding and up to 108 today. Mg borderline low - start MagOx 400 mg daily. Outpatient Xarelto cost about 400 dollars a month - will change to Coumadin. Pharm consult initiated. 06/29/17 Heart rate improved with addition of diltiazem. Blood pressure stable. Maintaining saturation on RA. Coumadin started - INR subtherapeutic as will take several day for INR to increase. Needs 2 more doses of Tamiflu to complete course. Medically stable for discharge to [facility] for skilled care. Will have INR done on Sunday 07/02 due to Coumadin use. Will recheck INR and CMP/Mg on 07/05 due to medication use. INR Monitoring as per Dr Bethea thereafter. F/U with Dr Bethea in 1 week for reevaluation. See orders for details.
--- NOTE | 2017-06-29 11:16 | Extended Care Facility Orders ---
Admission Orders Admit to:: [facility] Allergies/Adverse Reactions: Allergies No Known Allergies Allergy (Verified 06/24/17 22:36) Admitting Diagnosis: Influenza A /hypoxia; Afib Admitting Physician: Ajith Abad MD Attending Physician: Dr Vasquez Code Status: Do Not Resuscitate Anticiapted Length of Stay: 30 days or less Rehab Potential: fair Rehab Prognosis: fair Diet: Regular May use Facility Protocol or Standing Orders: Yes May have flu vaccine: Yes Evaluations/Treatment: PT, OT [facility] Certification: I certify that SNF services are required to be given on an Inpatient basis because of the patients need for retirement care on a continuing basis for the condition(s) for which he/she received inpatient hospital services prior to his/her transfer to the SNF. SNF inpatient care is necessary for the following reasons Indication for [facility]: Med Admininistration, Assess Anticoagulation Therapy, Other (Skilled PT/OT to maximize functional status. assisted to monitor cardiopulmonary status ) - Additional Information In Event of Arrest: Do Not Start CPR Resident is Aware of Diagnosis: Yes Referrals: Riccardo Bethea MD [Family Provider] - 1 Week (Hospital follow up for influenza. Afib - Metoprolol increased and diltiazem added. Started on Coumadin due to afib-will need INRs and adjustment of Coumadin. ASA stopped secondary to starting Coumadin. ) Additional Orders: F/U with Dr Bethea in 1 week. Lab: INR on 07/02/17 Dx: afib, warfarin use. Lab: CMP, magnesium, INR on 07/05/17 Dx: Medication use, afib. Use Acapella QID for 1 week, then as needed for congestion. O2 as needed to keep saturations >90%.
--- NOTE | 2017-06-29 11:21 | Discharge Summary ---
Discharge Information Date of admission: 06/25/17 00:23 Anticipated date of discharge: 06/29/17 Attending Physician: Ajith Abad MD Primary care physician: Riccardo Bethea MD Consults: PT/OT - Discharge Diagnosis (1) Influenza A Status: Acute (2) Hypoxia Status: Acute (3) Atrial fibrillation Status: Acute Discharge diagnosis Influenza A with hypoxia Associated conditions and complications Weakness with fall Atrial fibrillation, variable rate Thrombocytopenia Hypertension Dyslipidemia Hyponatremia (POA) Hypokalemia (Not POA) Lactic acidosis - Procedures Procedures: Date of Exam: 06/26/17 Type of Exam: US ECHO Doppler complete Left atrial dimension is normal. Left ventricular end-diastolic dimension is normal. Left ventricular wall thickness is normal. LV systolic function is normal with ejection fraction of 60%. Right atrium is normal. Right ventricle is normal. Aortic root dimension is normal. Mitral valve appears to be normal with trace of mitral regurgitation. Aortic valve was not visualized well. However, Doppler studies indicate no stenosis or insufficiency. Tricuspid valve shows mild tricuspid regurgitation with mild pulmonary hypertension with estimated pulmonary artery systolic pressure of 34. Pulmonary valve was not visualized. There is no pericardial effusion. IMPRESSION 1. Technically very difficult study. 2. Grossly normal LV systolic function with ejection fraction of about 60%. However, all daly were not visualized. 3. Trace of mitral regurgitation. 4. Mild tricuspid regurgitation with mild pulmonary hypertension with estimated pulmonary artery systolic pressure of 34. - Laboratory Labs: Admit Lab 06/24/17 22:20 WBC 5.3 Hgb 13.2 Hct 39.0 MCV 100.0 Plt Count 109 L Neut % (Auto) 82.5 H Lymph % (Auto) 8.0 L [place] % (Auto) 9.1 H Eos % (Auto) 0.0 Baso % (Auto) 0.2 Admit Lab 06/24/17 22:20 Sodium 133 L Potassium 4.1 Chloride 94 L Carbon Dioxide 31 H Anion Gap 8 BUN 36.0 H Creatinine 1.0 GFR Calculation 52 BUN/Creatinine Ratio 36 H Glucose 118 H Calculated Osmolality 265 Calcium 8.7 Total Bilirubin 0.40 AST 66 H ALT 35 Alkaline Phosphatase 58 Total Protein 6.9 Albumin 3.9 Globulin 3.0 Albumin/Globulin Ratio 1.3 Plasma Lactate 1.3 06/29/17 04:10 06/29/17 04:10 - Microbiology Microbiology 06/26/17 08:37 Peripheral/Iv Start Blood Culture - Preliminary No Growth After 3 Days 06/26/17 08:33 Peripheral/Iv Start Blood Culture - Preliminary No Growth After 3 Days - Radiology Radiology: Date of Exam: 06/24/17 Type of Exam: XR chest 2V Findings: Patient shows slight increase in the heart size since the 2011 study. Increased interstitial markings have increased just slightly and may be more reflective of increasing interstitial lung disease some. Patient showed quite a bit of chronic change on the old exam. No pleural effusions or significant central vascular congestion identified. Impression: Significant chronic interstitial lung disease with a slight increase in the heart size without pleural effusions or significant central vascular congestion. History of Present Illness HPI: Mrs. Collins is an 87-year-old female who presented to the emergency room after falling at home. She is not aware of any injuries and reports that she simply felt weak and couldn't keep her balance. She adamantly denies syncope and is not aware of any injuries. This occurred late yesterday after she had a cough for 2 or 3 days associated with poor oral intake. Cough has been nonproductive and she denies wheezing or pleuritic pain. Patient reports some dyspnea and exertional dyspnea. She has felt feverish but denied rigors or chills. She reports her thermometer doesn't work at home so she is unsure how high her temperature is been. She's had no swelling in her legs and no chest pain. Initial temperature in the emergency room was 100 and she has had mild tachypnea with some tachycardia since admission. Oxygen saturation on arrival was 89% on room air and later repeated at 87%. Respiratory viral panel was positive for influenza A and she was hospitalized for management of hypoxia and weakness in the setting of a fall. For complete details of the H&P refer to that document. Objective Vital signs: Temperature 97 F 06/29/17 07:00 Pulse Rate 71 06/29/17 07:00 Respiratory Rate 22 06/29/17 08:40 Blood Pressure 131/70 06/29/17 07:00 Pulse Oximetry 94 06/29/17 08:40 Rhythm: Atrial Fibrillation with RVR Height/Weight/BMI: Height 1.63 m Weight 53.1 kg Body Mass Index 18.0 Hospital Course This is a general summary of the patient's hospital course. For more details refer to the complete medical record. Hospital course: 06/25/17 Admitted with weakness and a fall; diagnosed with influenza A during assessment in the emergency room. Incidentally noted to be in atrial fibrillation-duration unknown. Tamiflu was initiated overnight for treatment of influenza A. Patient' s diuretic remains on hold; metoprolol was resumed to assist with rate control. Continue telemetry. EKG to be obtained. Patient did not describe history of arrhythmias or other cardiac disease when past medical history obtained; may be result of acute illness. Continue IV fluids, check orthostatics, and obtain PT/ OT consults due to weakness and fall that preceded hospitalization. Follow platelet count and sodium, both borderline on admission. 06/26/17 Hypoxia improved, day 2 Tamiflu. Patient hoping to discharge to correction for strengthening. Atrial fibrillation discussed with the patient-she is interested in anticoagulation and does not describe any contraindication to doing so, Echocardiogram to be obtained to exclude valvular heart disease. Options reviewed with the patient in addition to bleeding risk. Will clarify cost of and NOACs prior to final decision. Continue low-dose Lovenox at present. Metoprolol increased to 150 mg daily for improved rate control although anticipate improved rate control with decreased beta agonist use. Review of past records indicates patient was in atrial fibrillation when hospitalized for surgery in 2014. Lactic acidosis new today, clearly has viral syndrome. Continue fluids. Blood pressure stable. Blood cultures drawn. 06/27/17 On 2 L O2. Day #3 Tamiflu. Patient improving. Echocardiogram results are pending. Patient willing to start chronic anticoagulation for A. fib. Currently on low-dose Lovenox. Platelet count 101K, continue to monitor-likely viral manifestation that may preclude anticoagulation. Metoprolol increased to 150 mg daily for improved rate control. Rates 100-123 over the past 24 hours. Patient hoping to discharge to correction at [facility] for strengthening. 06/28/17 Sats dropped to 85% on room air and she was placed back on O2. Cont Tamiflu day #4. Echo read by Dr. Coello - EF 60%; mild TR, mild PH. HR still >130 at times; pt asymptomatic and BP tends to be on high side. D/W Dr. Abad - will start diltiazem 180 mg daily. Cont higher dose of metoprolol. Consider cardiology consultation. Platelet count is rebounding and up to 108 today. Mg borderline low - start MagOx 400 mg daily. Outpatient Xarelto cost about 400 dollars a month - will change to Coumadin. Pharm consult initiated. 06/29/17 Heart rate improved with addition of diltiazem. Blood pressure stable. Maintaining saturation on RA. Coumadin started - INR subtherapeutic as will take several day for INR to increase. Needs 2 more doses of Tamiflu to complete course. Medically stable for discharge to [facility] for skilled care. Will have INR done on Sunday 07/02 due to Coumadin use. Will recheck INR and CMP/Mg on 07/05 due to medication use. INR Monitoring as per Dr Bethea thereafter. F/U with Dr Bethea in 1 week for reevaluation. See orders for details. Time spent with patient: greater than 35 minutes Resuscitation Status: Do Not Resuscitate Discharge Plan - Discharge Disposition Discharge Date: 06/29/17 Disposition: 03 To SN[facility] Not [facility] (SNF) *Condition: Improved Reason For Visit (Visit label in EMR): Influenza A /hypoxia - Discharge Medications *Discharge Medications: New Albuterol Neb (0.083%) [Proventil Neb (0.083%)] 2.5 mg AEROSOL RTQID PRN each PRN Reason: Shortness Of Air DiltiaZEM CD [Cardizem Cd] 180 mg PO DAILY #30 cap Guaifenesin LA [Mucinex LA] 1,200 mg PO BID #14 tab LORazepam [Ativan] 0.5 mg PO HS PRN #20 tab PRN Reason: anxiety/insomnia Magnesium Oxide [Magox] 400 mg PO DAILY tab Menthol Cough Drops [Ricola Sf] 1 lozenge MM PRN PRN lozenge PRN Reason: Cough Metoprolol Succinate (XL) [Toprol Xl] 75 mg PO BID tab Oseltamivir Cap [Tamiflu] 75 mg PO BID #2 cap Oxycodone/Acetaminophen 5/325 [Percocet 5/325] 1 tab PO Q6H PRN #20 tab PRN Reason: Pain Senna + Docusate [Senna Plus Tablet] 2 tab PO HS tab Continue Acetaminophen 325 mg PO Q4H PRN PRN Reason: Pain Multivitamin [Multivitamins] 1 cap PO DAILY Changed Lovastatin [Mevacor] 20 mg PO HS #30 Discontinued Triamterene/Hydrochlorothiazid [Maxzide 75 mg-50 mg Tablet] 1 tab PO DAILY #0 Aspirin [Aspir 81] 81 mg PO DAILY #0 Metoprolol Succinate 50 mg PO BID - Discharge Packet/Instructions *Diet: Regular *Activity: As tolerated *Pain Management/Treatment: Tylenol/Percocet as needed *Wound Care: N/A Additional Instructions: Use Acapella 4 times a day for 1 week, then as needed for congestion. Use Mucinex LA twice a day for 1 week to decrease secreations. *Expected Signs/Symptoms: Improvement of breathing and functional status *Notify Physician if: Temp >100.4. Chest pain/pressure. Passing dark, tarry, black stools. Excessive bleeding. *During Business Hours Contact: Nursing staff at [facility] *After Business Hours Contact: Nursing staff at [facility] *Pending Lab/Results: No Pending Lab - Referrals/Follow Up *Referrals/Follow Up: Riccardo Bethea MD [Family Provider] - 1 Week (Hospital follow up for influenza. Afib - Metoprolol increased and diltiazem added. Started on Coumadin due to afib-will need INRs and adjustment of Coumadin. ASA stopped secondary to starting Coumadin. ) - Patient Handouts Patient Handouts: Influenza (GEN), Hypoxia (GEN) - Dismissal Complete Discharge Instructions are:: Complete Physician Narrative - Narrative Physician: Ajith Abad MD Attestation Narrative: Date: 06/29/17 Time: 1118 I have independently interviewed and examined patient prior to discharge. See my progress note from today for details. Medically stable for discharge to home.
[2017-06-29] MEDS ORDERED: WARFARIN 4 MG TABLET PO SCH (12:00)
--- NOTE | 2017-06-29 13:36 | Pharmacy Consult ---
Pharmacy Consult-Warfarin - Laboratory Information 06/29/17 04:11 INR 1.29 H - Consult Information Warfarin protocol: day 2 87 y.o. female with new onset a.fib. received 1 dose of Xarelto 06/27/17 and changed to Warfarin protocol today. goal INR range = 2.0 to 3.0. date INR dose 06/28 4 mg 06/29 1.29 plan: 4 mg Will give Warfarin 4 mg po x1 dose today. Pharmacy will monitor and adjust as needed. Thank you, Kelly Garcia [facility]
== END 2017-06-29 16:00 | DRG 194 ==
LOC: ED 21:22 → MED 06-25 00:23 → SUATTDRO 06-25 00:23 → MED 06-25 00:35
PROVIDERS: ADMIT Hospitalist; ATTEND Hospitalist

== ENCOUNTER 2017-07-02 18:09 | Inpatient (IN) ==
[2017-07-02] MEDS: SALINE FLUSH 10ml SYRINGE IVF PRN (20:49)
[2017-07-02] MEDS ORDERED: ONDANSETRON 4 MG/2 ML INJECTION IVP ONE (20:56)
[2017-07-02] MEDS ORDERED: MORPHINE SULFATE 2mg INJECTION IVP ONE (20:56)
--- NOTE | 2017-07-02 21:12 | Emergency Department Report ---
General Adult HPI - General Chief complaint: Medical Emergency Stated complaint: abnormal lab work Time Seen by Provider: 07/02/17 19:01 - History of Present Illness HPI narrative: 87-year-old female presents with left-sided rib pain. She had labs drawn today and was told that her INR was elevated to 15 and that she needed a shot of vitamin K. She has developed a bruise on the left side. States she feels okay unless she is moving around.Pain is 8 out of 10 when she moves. Deep breathing also hurts on the left side. Otherwise no difficulty breathing at this time. She did fall approximately 8 days ago. And landed on her left side when she fell. She was admitted last week with influenza and was discharged to [facility]. She has had difficulty ambulating the last several days due to the rib pain. However she would not come to the emergency department except for the instructions to have her INR treated. - Related Data Home Medications Medication Instructions Recorded Confirmed Acetaminophen 650 mg PO Q4H PRN 02/13/17 07/02/17 Multivitamin [Multivitamins] 1 cap PO DAILY 02/13/17 07/02/17 Albuterol Sulfate 2.5 mg AEROSOL Q6H PRN 07/02/17 07/02/17 Metoprolol Succinate 25 mg PO DAILY 07/02/17 07/02/17 Metoprolol Succinate (XL) [Toprol 50 mg PO DAILY 07/02/17 07/02/17 Xl] Oxycodone/Acetaminophen 5/325 1 tab PO Q6H PRN 07/02/17 07/02/17 [Percocet 5/325] Warfarin Sodium 4 mg PO 1700 07/02/17 07/02/17 dilTIAZem HCl [Diltiazem ER] 180 mg PO DAILY 07/02/17 07/02/17 guaiFENesin [Mucinex] 600 mg PO BID 07/02/17 07/02/17 Previous Rx's Medication Instructions Recorded LORazepam [Ativan] 0.5 mg PO HS PRN #20 tab 06/29/17 Lovastatin [Mevacor] 20 mg PO HS #30 06/29/17 Magnesium Oxide [Magox] 400 mg PO DAILY tab 06/29/17 Oseltamivir Cap [Tamiflu] 75 mg PO BID #2 cap 06/29/17 Senna + Docusate [Senna Plus 2 tab PO HS tab 06/29/17 Tablet] Allergies Allergy/AdvReac Type Severity Reaction Status Date / Time No Known Allergies Allergy Verified 07/02/17 18:31 Review of Systems All systems: reviewed and negative except as stated PFSH Patient Stated Medical History Migraine Yes: hx Cataracts Yes Other HEENT Yes: Wears glasses, L eye hemorrhage Hypertension Yes Chronic Obstructive Pulmonary Yes Disease (COPD) Pneumonia Yes Hiatal Hernia Yes Osteoarthritis Yes Surgical History: Hysterectomy - Social History Smoking status: Never smoker Physical Exam - Limitations Limitations: no limitations - General General appearance: alert, in distress (pain) - Normal Exams: Head:: Normocephalic without trauma Cardiovascular:: Regular rate and rhythm, without murmur or gallop, Pulses 2+ all extremities, capillary refill, <2 seconds all extremities Abdomen:: Bowel sounds positive, soft, non-tender, non-distended, no hepatosplenomegaly, masses or bruits noted Neurological:: Patient is alert, and oriented, cranial nerves, motor/sensory/ cerebellar, exams w/o gross deficits, to observation Psychiatric:: Patient exhibits, appropriate attention, emotion and affect - Chest Chest inspection: Present: other (tenderness and bruising noted left lower mid axillary ribs. This bruise is approximately palm sized and does not appear to be brand-new.) Course Vital Signs Temperature 97.8 F 07/02/17 18:25 Pulse Rate 76 07/02/17 18:25 Respiratory Rate 20 07/02/17 18:25 Blood Pressure 148/70 H 07/02/17 18:25 Pulse Oximetry 91 07/02/17 18:25 Temperature 95.5 F L 07/03/17 00:35 Pulse Rate 82 07/03/17 00:35 Respiratory Rate 18 07/03/17 00:35 Blood Pressure 156/80 H 07/03/17 00:35 Pulse Oximetry 95 07/03/17 00:35 Medical Decision Making - [facility] Narrative Medical decision making narrative: CBC, CMP, INR and rib x-ray ordered due to pain on left side. 500 mL fluid bolus of normal saline. Patient was given 4 mg of morphine for pain. Chest x- ray reviewed and to displaced fractures seen on left mid axillary. CT chest was then ordered. Multiple comminuted fractures noted on CT chest with at least 5 separate fractures noted. INR returned at 14. CBC CMP with no significantly acute changes from her norm. Trauma surgery was contacted at [facility] due to the concern of flail chest identified on CT. Acute intervention would not be performed unless patient was in need of stabilization of rib fractures. She has been doing well over the last week as far as oxygenation. Patient is stable, not requiring more oxygen than normal at her 2 L nasal cannula rate. She did require 4 mg of morphine for pain. On discussion with trauma surgeon on- call, surgeon was more than willing to accept the patient on transfer, but did point out that acutely she was stable and this was an injury for at least 7 days previous. I discussed this with the patient and her family and we elected to keep her here and admit her to hospitalist service for management of pain and elevated INR. Patient was given 5 mg oral vitamin K. She'll be admitted with oral and IV pain meds as needed. - Medical Records Medical records reviewed: Yes: I reviewed the patient's medical records. - Lab Data Lab results reviewed: Yes: I reviewed the patient's lab results. Result diagrams: 07/02/17 19:29 07/02/17 19:29 Lab Results 07/02/17 07/02/17 07/02/17 Range/Units 19:29 19:29 19:29 WBC 5.2 (4.5-11.0) T/MM3 RBC 4.11 (4.00-5.20) M/MM3 Hgb 13.8 (12-16) GM/DL Hct 40.7 (36-46) % MCV 99.0 (80-100) UM3 MCH 33.6 (26-34) UUG MCHC 33.9 (31-37) GM/DL RDW Std Deviation 47.2 (36.9-50.2) FL Plt Count 236 D (130-400) T/MM3 MPV 10.4 (9.4-12.4) UM3 Immature Gran % (Auto) 0.8 H (0.0-0.5) % Neut % (Auto) 74.3 H (33-66) % Lymph % (Auto) 12.3 L (23-45) % [place] % (Auto) 11.1 H (0-9.0) % Eos % (Auto) 1.3 (0-4) % Baso % (Auto) 0.2 (0-2) % Neut # (Auto) 3.9 (1.8-7.7) T/MM3 Lymph # (Auto) 0.6 L (1-4.8) T/MM3 [place] # (Auto) 0.6 (0-0.8) T/MM3 Eos # (Auto) 0.1 (0-0.5) T/MM3 Baso # (Auto) 0.0 (0-0.2) T/MM3 Abs Immat Gran (auto) 0.04 H (0.00-0.03) T/MM3 INR > 10.00 H* (0.99-1.21) Turbidity < 20 (0-20) Sodium 135 (134-144) MEQ/L Potassium 4.1 (3.6-5) MEQ/L Chloride 95 L (98-107) MEQ/L Carbon Dioxide 32 H (22-30) MEQ/L Anion Gap 8 (5-15) MEQ/L BUN 22.0 H (7-17) MG/DL Creatinine 0.7 (0.7-1.2) MG/DL GFR Calculation 79 BUN/Creatinine Ratio 31 H (6-26) RATIO Glucose 125 H (65-110) MG/DL Calculated Osmolality 264 (261-280) MOSM/KG Calcium 9.1 (8.4-10.2) MG/DL Total Bilirubin 0.80 (0.20-1.30) MG/DL Icterus Index < 2 (0-7) AST 37 H (14-36) U/L ALT 38 (9-52) U/L Alkaline Phosphatase 66 (38-126) U/L Total Protein 6.7 (6.3-8.2) G/DL Albumin 3.5 (3.5-5.0) G/DL Globulin 3.2 (2.4-3.6) G/DL Albumin/Globulin Ratio 1.1 (1.1-2.2) RATIO Specimen Hemolysis < 15 (0-25) - Radiology Data Radiology results reviewed: Yes: I reviewed the patient's radiology results. Disposition Clinical Impression: Fracture of ribs, multiple, closed Disposition: 02 To [facility] [place] Condition: Stable Time of Disposition: 01:17 - Seen By: physician
[2017-07-02] MEDS ORDERED: PHYTONADIONE 5 MG/2.5 ML ORAL LIQUID PO ONE (23:17)
[2017-07-03] MEDS ORDERED: MORPHINE SULFATE 4mg INJECTION IVP PRN (00:34)
[2017-07-03] MEDS ORDERED: Oxycodone/Acetaminophen 5/325 1 TAB PO PRN (00:34)
[2017-07-03] MEDS ORDERED: ALBUTEROL 2.5mg/3ml (0.083%) NEB AEROSOL PRN (00:34)
[2017-07-03] MEDS ORDERED: ONDANSETRON 4 MG/2 ML INJECTION IVP PRN (00:34)
[2017-07-03] MEDS ORDERED: ACETAMINOPHEN 325 MG TABLET PO PRN (00:34)
[2017-07-03] MEDS ORDERED: Bisacodyl EC TAB 5 MG TABLET PO PRN (00:34)
[2017-07-03] MEDS ORDERED: LORazepam 0.5 MG TABLET PO PRN (00:34)
[2017-07-03] MEDS: SALINE FLUSH 10ml SYRINGE IVF PRN (00:46)
[2017-07-03] MEDS: NS 1,000 ML IV SCH ×2 (00:46→11:25)
[2017-07-03 00:49] VITALS: BMI 20.5
--- NOTE | 2017-07-03 00:50 | History & Physical Report ---
History of Present Illness Date: 07/03/17 Chief complaint: abnormal lab HPI: Patient was seen with nursing assistance on 07/03/2017. Ms. Collins is a pleasant 87yo woman with h/o essential HTN, dyslipidemia, and afib who I met 8 days ago with influenza admission. She had a fall then and recognizes pleuritic pain improved with prn generic percocet. She had been from home, but was discharged to [facility] upon 06/29 DC. Warfarin was a new medication to her, and lab draw 07/02 yielded INR 15 so she was sent to ED. Repeat in ED over 10 and facility not comfortable until lower. Patient denies any bleeding diathyses (no nosebleeds or blood in stool). No fevers, chills, nausea, and is eating ok. No dyspnea on RA and feels much better than when i last admitted her. She is DNR again. Pain less than 5/10 with pain meds. No other new meds except toprol increased and new diltiazem. Has been eating ok. Review of Systems All systems PM: 10-point ROS was reviewed, no additional remarkable complaints except Past Medical History Surgical History: Hysterectomy Family History Updates: none new from 06/25/2017 - Social History Smoking status: Never smoker Substance use type: does not use Alcohol intake frequency: does not drink Housing: assisted living facility Medications Home Medications Medication Instructions Recorded Confirmed Type Acetaminophen 650 mg PO Q4H PRN 02/13/17 07/02/17 History Multivitamin [Multivitamins] 1 cap PO DAILY 02/13/17 07/02/17 History Albuterol Sulfate 2.5 mg AEROSOL Q6H PRN 07/02/17 07/02/17 History Metoprolol Succinate 25 mg PO DAILY 07/02/17 07/02/17 History Metoprolol Succinate (XL) [Toprol 50 mg PO DAILY 07/02/17 07/02/17 History Xl] Oxycodone/Acetaminophen 5/325 1 tab PO Q6H PRN 07/02/17 07/02/17 History [Percocet 5/325] Warfarin Sodium 4 mg PO 1700 07/02/17 07/02/17 History dilTIAZem HCl [Diltiazem ER] 180 mg PO DAILY 07/02/17 07/02/17 History guaiFENesin [Mucinex] 600 mg PO BID 07/02/17 07/02/17 History Allergies Allergy/AdvReac Type Severity Reaction Status Date / Time No Known Allergies Allergy Verified 07/02/17 18:31 Exam Vital Signs: Temperature 95.5 F L 07/03/17 00:35 Pulse Rate 82 07/03/17 00:35 Respiratory Rate 18 07/03/17 00:35 Blood Pressure 156/80 H 07/03/17 00:35 Pulse Oximetry 95 07/03/17 00:35 - Constitutional Present: no acute distress - Routine HEENT Exam Head: Present: normocephalic Eye: Present: EOMI - Routine Neck Exam Present: full ROM - Routine Respiratory Exam Absent: accessory muscle use Comments: rales still at bases with no wheezing, symmetric effort - Routine Cardiovascular Exam Comments: rhythm seems regular now with no murmur or edema - Routine Abdominal Exam Present: soft, normoactive bowel sounds. Absent: tenderness - Routine Extremities Exam Absent: cyanosis, clubbing - Routine Back/Spine/Pelvis Exam Back/Spine: Present: full ROM - Routine Skin Exam Comments: prior L sided bruise noted - Routine Neurological Exam Present: alert, oriented X3 hard of hearing, no lateralizing signs Results - Labs CBC & Chem 7: 07/02/17 19:29 07/03/17 04:35 Assessment and Plan (1) Elevated INR Current visit: Yes Status: Acute (2) COPD (chronic obstructive pulmonary disease) Current visit: No Status: Acute (3) HTN (hypertension) Current visit: No Status: Acute (4) Dyslipidemia Current visit: No Status: Acute (5) Atrial fibrillation Current visit: No Status: Acute Assessment and Plan: 1. Elevated INR--obs stay with discussion with ED provider and 5mg vit K recc. Recheck INR this AM and hold warfarin. Likely will need repeat 5mg dose. Warfarin dose on DC ultimately will need to only be 1-2mg daily. 2. Paroxysmal afib with echo last admit reviewed and preserved EF. No signs CHF. Toprol and diltiazem as prior. 3. Essential HTN--same meds. 4. Dyslipidemia on statin. 5. L sided rib fxs likely not new with no fall since 06/24. See ED provider documentation. Percocet generic prn and monitor with no current hypoxia. 6. Stress hyperglycemia. DVT Prophylaxis: Coumadin Resuscitation Status: Do Not Resuscitate - Physician Narrative Physician: Ajith Abad MD Narrative: Date: 07/03/17 1848 I have independently interviewed and examined pt. Chart reviewed. Reviewed above note and concur. CC: Abnormal lab (INR elevated) HPI: 87 y/o female recently discharged to Nursing Home at [facility] for restorative modalities following influenza, weakness and fall. Found to have afib during that hospitalization. Heart rate controlled. Initially started on Xarelto, but would have been 400 dollars a month-changes to Coumadin. Discharged on 4mg Coumadin daily. INR subtherapeutic at discharge. Lab monitoring showed significant elevation of INR to above 10 (14). Patent not having active bleeding but at fall risk. Presented to ED for further evaluation. PHMx: Afib, HTN, Dyslipidemia, ALL: NKDA MEDS: see MAR SHx: Had been living independently prior to recent hospitalization-currently in Skilled Care at [facility]. No smoke, ETOH. Dr Vasquez PCP. FHx: Mother at 85 of CVA. Father at 66 of CAD. ROS: As in HPI. 10 point ROS discussed with pt and negative except: Pulm: occasional cough, slight discomfort with breathing from recent rib fx. CV: Notes edema to legs, no chest pressure or palpitations. GI: decreased appetite- no nausea or vomiting; stools slow. GEN: 'not had enough time to work with therapy to get stronger.' Exam GEN: [id number] awake alert HEENT: NC/AT PERRLA EOMI MMM Neck: supple, midline, no tracheal deviation CV: regular without murmur. Lungs: slight decreased breath sounds bilaterally. No distress AB: soft nt/nd +BS EXT: +2 BLE. Skin: warm and dry Neuro: CN II-XII intact. No focal deficits Psych: awake alert appropriate. Thoughts linear MS: normal muscle tone of upper lower ext Lab: INR >10 Assessment Super-therapeutic INR Afib - paroxysmal HTN HDL Elevated blood sugar Gen Debility Plan OBS - monitor tele and for bleeding. Vitamin K given in ER. Monitor INR. Hold Warfarin due to elevated INR. IVF started on admission. Continue home medications. DNR as per her requests. Care to return to Dr Bethea at time of discharge from [facility]. Hospital Course Summary Disclaimer: The visit summary below is not to be considered part of the above Progress Note. Hospital Course: 07/02/17 OBS - monitor tele and for bleeding. Vitamin K given in ER. Hold Warfarin due to elevated INR. Monitor INR IVF started on admission. Continue home medications. DNR as per her requests. Care to return to Dr Bethea at time of discharge from [facility].
[2017-07-03] MEDS ORDERED: FALL RISK - PHARMACY CONSULT XX ONE (01:04)
[2017-07-03] MEDS ORDERED: MORPHINE SULFATE 2mg INJECTION IVP PRN (01:11)
--- NOTE | 2017-07-03 08:14 | CT Scan Report ---
Indication: rib fracture, pain PROCEDURE: CT chest wo con: Encounter: Initial Comparison: Chest x-ray dated June 24, 2017 Technique: Axial CT images were performed through the chest without intravenous contrast. Coronal and sagittal two-dimensional reformats. Automated Exposure Control and Iterative Reconstruction dose reducing techniques were utilized. Findings: Moderate bilateral pleural effusions with compressive atelectasis in the lower lobes. Patchy groundglass consolidation seen scattered throughout both lung cunningham. Areas of chronic bronchiectasis and scarring seen in the anteromedial lingula and right middle lobe. No pneumothorax. The central airways are patent. No axillary or mediastinal adenopathy. Heart is moderately enlarged with a small pericardial effusion. The upper abdomen shows no acute findings. Bone windows show fractures of the left fifth, sixth, seventh and eighth anterolateral ribs along with the seventh, eighth, ninth and 10th posterior ribs with mild displacement. Impression: Numerous left rib fractures with moderate pleural effusions. A flail chest segment is possible. The effusions do not appear to represent hemothoraces. Underlying pneumonia or aspiration is possible given the acute and chronic appearing airspace abnormalities. 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 There is a preliminary report by [employer]. .
--- NOTE | 2017-07-03 08:23 | XRay Report ---
Indication: RIB PAIN PROCEDURE: XR ribs LT 2-3V: Encounter: Initial Comparison: Chest CT from the same date Findings: Multiple left rib fractures are again noted including the fourth, fifth, sixth, seventh, eighth, ninth and 10th ribs. Several of these ribs are broken both laterally and posteriorly raising concern for a flail chest segment. There is a moderate left effusion. No obvious pneumothorax on these supine views. Impression: Multiple left rib fractures raising concern for possible flail segment. .
[2017-07-03] MEDS: MAGNESIUM OXIDE 400 MG TABLET PO SCH (08:29)
[2017-07-03] MEDS ORDERED: NS FLUSH BAG 500ml IV PRN (08:55)
--- NOTE | 2017-07-03 17:31 | Progress Note ---
- Date 07/03/17 Subjective: F/U: Elevated INR Doing okay this evening-frustrated that she left her hearing aides at home. Notes some SOA, worse when she lays down. Not having cough/congestion. Some discomfort to chest wall with breathing, but not having severe pain. Eating well -likes food here better than [facility]. Objective Vital signs: Temperature 97.9 F 07/03/17 16:33 Pulse Rate 68 07/03/17 15:17 Respiratory Rate 14 07/03/17 08:13 Blood Pressure 126/67 07/03/17 15:17 Pulse Oximetry 90 07/03/17 15:17 - Constitutional Present: well nourished, well developed, average body habitus, cooperative - Routine HEENT Exam Head: Present: normocephalic, atraumatic Eye: Present: EOMI, PERRL ENT: Present: mucous membranes moist - Routine Respiratory Exam Present: decreased breath sounds. Absent: rales, respiratory distress, rhonchi , stridor - Routine Cardiovascular Exam Present: RRR, no murmur - Routine Abdominal Exam Present: soft, normoactive bowel sounds, non distended, non tender - Routine Extremities Exam Present: edema (+2BLE ). Absent: cyanosis, clubbing - Routine Musculoskeletal Exam Musculoskeletal: Present: no clubbing or cyanosis - Routine Skin Exam Present: dry, warm - Routine Neurological Exam Present: alert, oriented X3, CN II-XII intact, moving all extremities, vision grossly intact, normal speech. Absent: motor deficit, altered mental status, hearing grossly intact (Hard of hearing ) - Routine Psychiatric Exam Present: normal affect, normal thought process, cooperative, good insight, good judgment Results - Labs CBC & Chem 7: 07/02/17 19:29 07/03/17 04:35 Assessment and Plan (1) Elevated INR Current visit: Yes Status: Acute (2) COPD (chronic obstructive pulmonary disease) Current visit: No Status: Acute (3) HTN (hypertension) Current visit: No Status: Acute (4) Dyslipidemia Current visit: No Status: Acute (5) Atrial fibrillation Current visit: No Status: Acute Assessment and Plan: Assessment Super-therapeutic INR Afib - paroxysmal HTN HDL Elevated blood sugar Multiple left rib fractures - subacute - suspect secondary to recent fall trauma Gen Debility Plan With INR above 10, will change admission status to inpatient. Will stop IVF due to edema and patient taking oral well. INR without change post Vitamin K - with finding of rib fracture, do feel would be prudent to lower INR more rapidly. Will give FFP to help low INR. With patient's gait instability and rib fractures, do feel holding on anticoagulation until she is stronger would be prudent. Will recheck CBC and BMP along with INR tomorrow. Case discussed with CM. - Physician Narrative Narrative: Date: 07/03/17 Time: 1727 Hospital Course Summary Disclaimer: The visit summary below is not to be considered part of the above Progress Note. Hospital Course: 07/02/17 OBS - monitor tele and for bleeding. Vitamin K given in ER. Hold Warfarin due to elevated INR. Monitor INR IVF started on admission. Continue home medications. DNR as per her requests. Care to return to Dr Bethea at time of discharge [place] [facility]. 07/03/17 With INR above 10, will change admission status to inpatient. Will stop IVF due to edema and patient taking oral well. INR without change post Vitamin K - with finding of rib fracture, do feel would be prudent to lower INR more rapidly. Will give FFP to help low INR. With patient's gait instability and rib fractures, do feel holding on anticoagulation until she is stronger would be prudent. Will recheck CBC and BMP along with INR tomorrow.
[2017-07-03] MEDS ORDERED: LOVASTATIN 20 MG TABLET PO SCH (21:00)
[2017-07-04 00:19] VITALS: RESP 18
[2017-07-04] MEDS: MAGNESIUM OXIDE 400 MG TABLET PO SCH (09:32)
[2017-07-04 09:39] VITALS: BP 146/75; PULSE 97; TEMP 97.6; O2SAT 98
--- NOTE | 2017-07-04 11:57 | Progress Note ---
- Date 07/04/17 Subjective: F/U: Elevated INR Doing okay today. Breathing fair-some congestion but little cough. Chest wall with discomfort from breathing. Needing O2 to assist breathing. Appetite fair, no nausea but not much hunger. No ab pain. Urinating well. No f/c. Objective Vital signs: Temperature 97.6 F 07/04/17 08:00 Pulse Rate 97 07/04/17 08:00 Respiratory Rate 18 07/04/17 08:00 Blood Pressure 146/75 H 07/04/17 08:00 Pulse Oximetry 98 07/04/17 08:00 - Constitutional Present: no acute distress, well nourished, well developed, average body habitus , cooperative - Routine HEENT Exam Head: Present: normocephalic, atraumatic Eye: Present: EOMI, PERRL ENT: Present: mucous membranes moist - Routine Respiratory Exam Present: decreased breath sounds, crackles - Routine Cardiovascular Exam Present: irregular rhythm, irregularly irregular - Routine Abdominal Exam Present: soft, normoactive bowel sounds, non distended, non tender - Routine Extremities Exam Present: edema (+2 BLE ), pulses intact. Absent: cyanosis, clubbing - Routine Musculoskeletal Exam Musculoskeletal: Present: no clubbing or cyanosis - Routine Skin Exam Present: dry, warm - Routine Neurological Exam Present: alert, oriented X3, CN II-XII intact, vision grossly intact, normal speech. Absent: motor deficit, altered mental status, hearing grossly intact ( Hard of hearing) - Routine Psychiatric Exam Present: normal affect, normal thought process, cooperative Results - Labs CBC & Chem 7: 07/04/17 09:57 07/04/17 09:57 Assessment and Plan (1) Elevated INR Current visit: Yes Status: Acute (2) COPD (chronic obstructive pulmonary disease) Current visit: No Status: Acute (3) HTN (hypertension) Current visit: No Status: Acute (4) Dyslipidemia Current visit: No Status: Acute (5) Atrial fibrillation Current visit: No Status: Acute Assessment and Plan: Assessment Super-therapeutic INR Afib - paroxysmal HTN HDL Elevated blood sugar Multiple left rib fractures - subacute - suspect secondary to recent fall trauma Gen Debility Plan INR with increase to 4.78 from recheck yesterday of 2.59 post FFP; not surprising as FFP clearing from her system. Will give 5mg oral vitamin K today. Hold on restarting Coumadin for anticoagulation until her strength is improved. Hemoglobin stable. Sodium normal at 135. Requiring O2 at 2L to maintain saturations. Likely secondary to IVF given. Will hold on increasing diuretics currently as oral drive with slight decrease. Can Discharge to [facility] for continuation of care. Continue PT/OT to maximize functional status. F/U with Dr Bethea in 1 week. See orders for details. Case discussed with CM. Time spent with patient care and discharge greater than 30 minutes. DVT Prophylaxis: SCD's Resuscitation Status: Do Not Resuscitate - Physician Narrative Physician: Ajith Abad MD Narrative: Date: 07/04/17 Time: 1154 Hospital Course Summary Disclaimer: The visit summary below is not to be considered part of the above Progress Note. Hospital Course: 07/02/17 OBS - monitor tele and for bleeding. Vitamin K given in ER. Hold Warfarin due to elevated INR. Monitor INR IVF started on admission. Continue home medications. DNR as per her requests. Care to return to Dr Bethea at time of discharge from [facility]. 07/03/17 With INR above 10, will change admission status to inpatient. Will stop IVF due to edema and patient taking oral well. INR without change post Vitamin K - with finding of rib fracture, do feel would be prudent to lower INR more rapidly. Will give FFP to help low INR. With patient's gait instability and rib fractures, do feel holding on anticoagulation until she is stronger would be prudent. Will recheck CBC and BMP along with INR tomorrow. 07/04/17 INR with increase to 4.78 from recheck yesterday of 2.59 post FFP; not surprising as FFP clearing from her system. Will give 5mg oral vitamin K today. Hold on restarting Coumadin for anticoagulation until her strength is improved. Hemoglobin stable. Sodium normal at 135. Requiring O2 at 2L to maintain saturations. Likely secondary to IVF given. Will hold on increasing diuretics currently as oral drive with slight decrease. Can Discharge to [facility] for continuation of care. Continue PT/OT to maximize functional status. F/U with Dr Bethea in 1 week. See orders for details.
--- NOTE | 2017-07-04 12:22 | Discharge Summary ---
Discharge Information Date of admission: 07/03/17 16:55 Anticipated date of discharge: 07/04/17 Attending Physician: Ajith Abad MD Primary care physician: Riccardo Bethea MD - Discharge Diagnosis (1) Elevated INR Status: Acute (2) COPD (chronic obstructive pulmonary disease) Status: Acute (3) HTN (hypertension) Status: Acute (4) Dyslipidemia Status: Acute (5) Atrial fibrillation Status: Acute Discharge diagnosis Elevated INR Associated conditions and complications Afib - paroxysmal HTN HDL Elevated blood sugar Multiple left rib fractures - subacute - suspect secondary to recent fall trauma Gen Debility - Laboratory Labs: Admit Lab 07/02/17 19:29 WBC 5.2 Hgb 13.8 Hct 40.7 MCV 99.0 Plt Count 236 D Neut % (Auto) 74.3 H Lymph % (Auto) 12.3 L [place] % (Auto) 11.1 H Eos % (Auto) 1.3 Baso % (Auto) 0.2 Admit Lab 07/02/17 19:29 Sodium 135 Potassium 4.1 Chloride 95 L Carbon Dioxide 32 H Anion Gap 8 BUN 22.0 H Creatinine 0.7 GFR Calculation 79 BUN/Creatinine Ratio 31 H Glucose 125 H Calculated Osmolality 264 Calcium 9.1 Total Bilirubin 0.80 AST 37 H ALT 38 Alkaline Phosphatase 66 Total Protein 6.7 Albumin 3.5 Globulin 3.2 Albumin/Globulin Ratio 1.1 Admit Lab 07/02/17 19:29 INR > 10.00 H* INR after FFP 07/03/17 17:07 INR 2.59 H INR on discharge 07/04/17 09:57 INR 4.78 H* 07/04/17 09:57 07/04/17 09:57 - Radiology Radiology: Date of Exam: 07/02/17 PROCEDURE: XR ribs LT 2-3V Findings: Multiple left rib fractures are again noted including the fourth, fifth, sixth, seventh, eighth, ninth and 10th ribs. Several of these ribs are broken both laterally and posteriorly raising concern for a flail chest segment. There is a moderate left effusion. No obvious pneumothorax on these supine views. Impression: Multiple left rib fractures raising concern for possible flail segment. Date of Exam: 07/02/17 PROCEDURE: CT chest wo con Findings: Moderate bilateral pleural effusions with compressive atelectasis in the lower lobes. Patchy groundglass consolidation seen scattered throughout both lung cunningham. Areas of chronic bronchiectasis and scarring seen in the anteromedial lingula and right middle lobe. No pneumothorax. The central airways are patent. No axillary or mediastinal adenopathy. Heart is moderately enlarged with a small pericardial effusion. The upper abdomen shows no acute findings. Bone windows show fractures of the left fifth, sixth, seventh and eighth anterolateral ribs along with the seventh, eighth, ninth and 10th posterior ribs with mild displacement. Impression: Numerous left rib fractures with moderate pleural effusions. A flail chest segment is possible. The effusions do not appear to represent hemothoraces. Underlying pneumonia or aspiration is possible given the acute and chronic appearing airspace abnormalities. 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 History of Present Illness HPI: Ms. Collins is a pleasant 87yo woman with h/o essential HTN, dyslipidemia, and afib who I met 8 days ago with influenza admission. She had a fall then and recognizes pleuritic pain improved with prn generic percocet. She had been from home, but was discharged to [facility] upon 06/29 DC. Warfarin was a new medication to her, and lab draw 07/02 yielded INR 15 so she was sent to ED. Repeat in ED over 10 and facility not comfortable until lower. Patient denies any bleeding diathyses (no nosebleeds or blood in stool). No fevers, chills, nausea, and is eating ok. No dyspnea on RA and feels much better than when i last admitted her. She is DNR again. Pain less than 5/10 with pain meds. No other new meds except toprol increased and new diltiazem. Has been eating ok. For complete details of the H&P refer to that document. Objective Vital signs: Temperature 97.6 F 07/04/17 08:00 Pulse Rate 97 07/04/17 08:00 Respiratory Rate 18 07/04/17 08:00 Blood Pressure 146/75 H 07/04/17 08:00 Pulse Oximetry 98 07/04/17 08:00 Hospital Course This is a general summary of the patient's hospital course. For more details refer to the complete medical record. Hospital course: 07/02/17 OBS - monitor tele and for bleeding. Vitamin K given in ER. Hold Warfarin due to elevated INR. Monitor INR IVF started on admission. Continue home medications. DNR as per her requests. Care to return to Dr Bethea at time of discharge from [facility]. 07/03/17 With INR above 10, will change admission status to inpatient. Will stop IVF due to edema and patient taking oral well. INR without change post Vitamin K - with finding of rib fracture, do feel would be prudent to lower INR more rapidly. Will give FFP to help low INR. With patient's gait instability and rib fractures, do feel holding on anticoagulation until she is stronger would be prudent. Will recheck CBC and BMP along with INR tomorrow. 07/04/17 INR with increase to 4.78 from recheck yesterday of 2.59 post FFP; not surprising as FFP clearing from her system. Will give 5mg oral vitamin K today. Hold on restarting Coumadin for anticoagulation until her strength is improved. Hemoglobin stable. Sodium normal at 135. Requiring O2 at 2L to maintain saturations. Likely secondary to IVF given. Will hold on increasing diuretics currently as oral drive with slight decrease. Can Discharge to [facility] for continuation of care. IS for 1 week to help breathing. Acapella as needed for congestion. O2 as needed to keep sats >90%. Continue PT/OT to maximize functional status. F/U with Dr Bethea in 1 week. See orders for details. Time spent with patient: discharge greater than 30 minutes Resuscitation Status: Do Not Resuscitate Discharge Plan - Discharge Disposition Discharge Date: 07/04/17 Disposition: 03 To [facility] Not [facility] (SNF) *Condition: Stable Reason For Visit (Visit label in EMR): rib fractures,elevated INR - Discharge Medications *Discharge Medications: Continue Acetaminophen 650 mg PO Q4H PRN PRN Reason: Pain Lovastatin [Mevacor] 20 mg PO HS #30 Magnesium Oxide [Magox] 400 mg PO DAILY tab Senna + Docusate [Senna Plus Tablet] 2 tab PO HS tab Metoprolol Succinate (XL) [Toprol Xl] 50 mg PO DAILY Albuterol Sulfate 2.5 mg AEROSOL Q6H PRN PRN Reason: Shortness Of Air/Wheezing guaiFENesin [Mucinex] 600 mg PO BID dilTIAZem HCl [Diltiazem 24Hr ER] 180 mg PO DAILY Oxycodone/Acetaminophen 5/325 [Percocet 5/325] 1 tab PO Q6H PRN #30 tab PRN Reason: Pain Multivitamin [Multivitamins] 1 cap PO DAILY Metoprolol Succinate 25 mg PO DAILY LORazepam [Ativan] 0.5 mg PO HS PRN #20 tab PRN Reason: anxiety/insomnia Discontinued Oseltamivir Cap [Tamiflu] 75 mg PO BID #2 cap Warfarin Sodium 4 mg PO 1700 - Discharge Packet/Instructions *Diet: Regular - No added salt *Activity: As tolerated *Pain Management/Treatment: Tylenol/Percocet as needed. *Wound Care: N/A Additional Instructions: Use IS [address] for 1 week to help breathing. May use Acapella QID as needed for congestion. *Expected Signs/Symptoms: Improvement of strenght and functional status. Improvement of breathing. *Notify Physician if: Temp >100.4. Intractable pain. *During Business Hours Contact: Nursing staff at [facility]. *After Business Hours Contact: Nursing staff at [facility] *Pending Lab/Results: No Pending Lab - Referrals/Follow Up *Referrals/Follow Up: Riccardo Bethea MD [Family Provider] - 1 Week (Post hospital follow up. Initially hospitalized with Influenza-found to be in afib and Toprol/diltiazem and Coumadin started. Rehospitalized with elevated INR - Coumadin stopped as fib fractures found from prior fall. Could consider restarting Coumadin once her strenght and stability improves. ) - Patient Handouts Patient Handouts: Rib Fracture (GEN) - Dismissal Complete Discharge Instructions are:: Complete Physician Narrative - Narrative Physician: Ajith Abad MD Attestation Narrative: Date: 07/04/17 Time: 1218 I have independently interviewed and examined patient prior to discharge. See my progress note from today for details. Medically stable for discharge to correction.
--- NOTE | 2017-07-04 12:38 | Extended Care Facility Orders ---
Admission Orders Admit to:: Senior Living Allergies/Adverse Reactions: Allergies No Known Allergies Allergy (Verified 07/02/17 18:31) Admitting Diagnosis: rib fractures,elevated INR Admitting Physician: Ajith Abad MD Attending Physician: Dr Bethea Code Status: Do Not Resuscitate Anticiapted Length of Stay: 30 days or less Rehab Potential: fair Rehab Prognosis: fair Diet: Regular - no added salt Wound/Incision Care: N/A May use Facility Protocol or Standing Orders: Yes May have flu vaccine: Yes Evaluations/Treatment: PT, OT Senior Living Certification: I certify that SNF services are required to be given on an Inpatient basis because of the patients need for penitentiary care on a continuing basis for the condition(s) for which he/she received inpatient hospital services prior to his/her transfer to the SNF. SNF inpatient care is necessary for the following reasons Indication for Senior Living: Teach Medication Management, Other (Skilled PT/ OT to maximize functional status. ) - Additional Information In Event of Arrest: Do Not Start CPR Resident is Aware of Diagnosis: Yes Referrals: Riccardo Bethea MD [Family Provider] - 1 Week (Post hospital follow up. Initially hospitalized with Influenza-found to be in afib and Toprol/diltiazem and Coumadin started. Rehospitalized with elevated INR - Coumadin stopped as fib fractures found from prior fall. Could consider restarting Coumadin once her strenght and stability improves. ) Additional Orders: F/U with Dr Bethea in 1 week. May use acapella 4 times a day as needed for congestion. Use IS 4 times a day for 1 week, then as needed for congestion/SOA. O2 to keep sats >90%. Coumadin/warfarin stopped.
[2017-07-04] MEDS ORDERED: PHYTONADIONE 5 MG/2.5 ML ORAL LIQUID PO ONE (13:00)
== END 2017-07-04 14:45 | DRG 948 ==
LOC: MED 18:09 → ED 18:09 → MED 07-03 00:25
PROVIDERS: ADMIT Hospitalist; ATTEND Hospitalist